=== PATIENT | female | born 1955 | race Caucasian/White ===

== ENCOUNTER 2019-11-17 17:37 | Emergency (ER) | payer MEDICAID ==
[2019-11-17] MEDS ORDERED: cefTRIAXone 1 GM Vial IM ONE (17:49)
[2019-11-17] MEDS ORDERED: Sulfamethoxazole/Trimethoprim 800-160 MG Tab PO ONE (17:50)
--- NOTE | 2019-11-17 17:55 | EDM.PDOC ---
ED HPI GENERAL MEDICAL PROBLEM - General Chief Complaint: Skin Complaint Stated Complaint: LEG PAIN Time Seen by Provider: 11/17/19 17:40 Source of Information: Reports: Patient History Limitations: Reports: No Limitations - History of Present Illness INITIAL COMMENTS - FREE TEXT/NARRATIVE: states she has had swelling of both legs upto a month now , Started from the left leg and now on the right leg. started draining fluid and she came and was seen in the clinic and started on amoxicillin and diuretic/ antihypertensive. has yvette taking but seems to be getting worse since it is draining more denies any fever or chills has not seen a physician in 6yrs unsure whether she has diabetes pt is morbidly obese Onset: Gradual Duration: Getting Worse Location: Reports: Lower Extremity, Left, Lower Extremity, Right Quality: Reports: Pressure Severity: Moderate Associated Symptoms: Reports: No Other Symptoms Treatments [employer]: Reports: Other Medication(s) (amoxicillin , diuretic) - Related Data Allergies Allergy/AdvReac Type Severity Reaction Status Date / Time No Known Allergies Allergy Verified 11/17/19 17:55 Home Meds: Home Meds Mupirocin Oint [Bactroban Oint] 22 gm TP BID #2 tube 11/17/19 [Rx] Sulfamethoxazole/Trimethoprim [Bactrim Ds Tablet] 1 each PO BID #28 tablet 11/16 [Rx] ED ROS GENERAL - Review of Systems Review Of Systems: Comprehensive ROS is negative, except as noted in HPI. ED EXAM, SKIN/RASH Exam: See Below Exam Limited By: No Limitations General Appearance: Alert, WD/WN, No Apparent Distress Ears: Normal External Exam Nose: Normal Inspection Throat/Mouth: Normal Inspection Neck: Supple, Non-Tender Respiratory/Chest: No Respiratory Distress Peripheral Pulses: 1+: Dorsalis Pedis (L) (difficult to assess), Dorsalis Pedis (R) (difficult to assess) Extremities: Mottled, Redness, Other (multiple ulcerations noted on the right leg , large ulcer on the posterior aspect of the leg , extensive excoriation and scabbing noted , fluid oozing from most of the ulcers) Neurological: Alert, Oriented Course - Re-Assessments/Exams Free Text/Narrative Re-Assessment/Exam: 11/17/19 18:04 pt given rocephin and bactrim has appt to FU with PCP in clinic Departure - Departure Time of Disposition: 18:20 Disposition: Home, Self-Care 01 Condition: Fair Clinical Impression: Stasis dermatitis of both legs, Cellulitis - Discharge Information *PRESCRIPTION DRUG MONITORING PROGRAM REVIEWED*: Not Applicable *COPY OF PRESCRIPTION DRUG MONITORING REPORT IN PATIENT KAREN: Not Applicable Instructions: Stasis Dermatitis, Venous Ulcer, [id number], Chronic Venous Insufficiency, Cellulitis, Adult Referrals: Jessica Dickerson PA [Primary Care Provider] - Additional Instructions: 1) Wound dressing daily with gauze , honey / topical antibiotic 2) keep leg elevated as much as possible 3) Keep appt with your doctor this week 4) If you have fever or symptoms get worse , you will need to be admitted
[2019-11-17] MEDS ORDERED: Bacitracin Oint 28.35 GM Tube ONE (18:22)
== END 2019-11-17 19:00 | disposition home or self-care (01) ==
LOC: FB.ED 17:37
DX: I87.2 Venous insufficiency (chronic) (peripheral) (principal); L03.116 Cellulitis of left lower limb; L03.115 Cellulitis of right lower limb
CPT/HCPCS: 96372; 99283; A9270; J0696